=== PATIENT | female | born 2000 | race Caucasian/White ===

== ENCOUNTER 2020-11-17 21:40 | Emergency (ER) | payer OTHER ==
[~2020-11-17] VITALS: Ht 160 cm; Wt 101.6 kg
[2020-11-17 22:40] LABS: BILIRUBIN,URINE NEGATIVE (NEGATIVE); CLARITY,URINE CLEAR; COLOR,URINE YELLOW; GLUCOSE, URINE (UA) NEGATIVE (NEGATIVE); KETONES,URINE NEGATIVE (NEGATIVE); LEUKOCYTE ESTERASE ,URINE NEGATIVE (NEGATIVE); NITRITE,URINE NEGATIVE (NEGATIVE); PROTEIN,URINE NEGATIVE (NEGATIVE)
[2020-11-17 22:50] LABS: BACTERIA,URINE LARGE /HPF
[2020-11-17] MEDS ORDERED: ONDANSETRON 4 MG/2 ML (SDV) Z0FRAN IVP ONE (23:00)
[2020-11-17] MEDS ORDERED: KETOROLAC 30 MG/ML VIAL IVP ONE (23:00)
--- NOTE | 2020-11-17 23:19 | ED Abdominal Pain ---
General Chief Complaint: General Problems/Pain Stated Complaint: STOMACH PAIN/R BREAST PAIN Nursing Triage Note: PT AMB TO TRIAGE WITH COMPLAINT OF LOWER ABD PAIN AND RIGHT BREAST PAIN. STATES ABD PAIN STARTED THIS MORNING AND DESCRIBES AN INTERMITTENT STABBING PAIN. STATES RIGHT BREAST PAIN HAS BEEN ON GOING FOR TWO MONTHS BUT HAS BEEN AFRAID TO GET IT CHECKED OUT. STATES LMP WAS APPROX 2 WEEKS AGO, BUT THERE IS A CHANCE FOR . Source of Information: Patient, Other (Fianc) Exam Limitations: No Limitations History of Present Illness Date Seen by Provider: Nov 17, 2020 Time Seen by Provider: 22:36 Initial Comments Patient presents ER by private conveyance chief complaint that this morning she was awoken with some suprapubic pain as well as some vaginal bleeding. She thinks she might be but had a negative test today. She is trying to get . She been having some white frothy discharge lately. No dysuria. Her last menstrual period was 2 weeks ago and she has always been very regular within 1 day. She is not having cough shortness of air fever or chills. She had a normal bowel movement today. She had some nausea and vomiting today and yesterday. She also has some right breast tenderness has been going on for over 6 months. At the beginning she was having a little bloody nipple discharge. She has not followed up with anybody because she has been ignoring it she says. She does not have a primary care provider. Allergies and Home Medications Allergies Coded Allergies: Penicillins (Verified Allergy, Unknown, 11/17/20) Patient Home Medication List Home Medication List Reviewed: Yes Review of Systems Review of Systems Constitutional: No chills, No diaphoresis EENTM: No Blurred Vision, No Double Vision Respiratory: Denies Cough, Denies Shortness of Air Cardiovascular: Denies Chest Pain, Denies Edema Gastrointestinal: Denies Abdomen Distended, Denies Abdominal Pain Genitourinary: See HPI; Denies Burning; Discharge, Pain Musculoskeletal: No back pain, No joint pain All Other Systems Reviewed Negative Unless Noted: Yes Past Txpvguz-Xmbtjz-Zyqshy Hx Patient Social History Alcohol Use: Denies Use Smoking Status: Never a Smoker Recent Infectious Disease Expo: No Recent Hopitalizations: No Ebola Symptoms: Denies Symptoms Listed Immunizations Up To Date Tetanus Booster (TDap): Unknown PED Vaccines UTD: Yes Seasonal Allergies Seasonal Allergies: No Past Medical History Surgeries: No Respiratory: No Cardiac: No Neurological: No Genitourinary: No Gastrointestinal: No Musculoskeletal: No Endocrine: No HEENT: No Cancer: No Psychosocial: No Integumentary: No Blood Disorders: No Physical Exam Vital Signs Vital Signs - First Documented 11/17/20 21:48 Pulse 86 Resp 20 B/P (MAP) 129/85 O2 Delivery Room Air Capillary Refill : Height/Weight/BMI Height: '" Weight: lbs. oz. kg; 39.00 BMI Method: General Appearance: WD/WN, no apparent distress HEENT: PERRL/EOMI, TMs normal, pharynx normal Neck: full range of motion, supple, normal inspection Respiratory: lungs clear, normal breath sounds, no respiratory distress, no accessory muscle use Cardiovascular: normal peripheral pulses, regular rate, rhythm Gastrointestinal: normal bowel sounds, soft, no organomegaly; No distended; tenderness (Suprapubic without McBurney's point tenderness, Mendoza sign or Rovsing sign or other mesenteric signs) Back: normal inspection, no CVA tenderness, no vertebral tenderness Neurologic/Psychiatric: alert, oriented x 3 Progress/Results/Core Measures Results/Orders Lab Results Laboratory Tests Test 11/17/20 22:31 11/17/20 23:20 Range/Units Urine Color YELLOW Urine Clarity CLEAR Urine pH 6.0 5-9 Urine Specific [place]berry >=1.030 1.016-1.022 Urine Protein NEGATIVE NEGATIVE Urine Glucose (UA) NEGATIVE NEGATIVE Urine Ketones NEGATIVE NEGATIVE Urine Nitrite NEGATIVE NEGATIVE Urine Bilirubin NEGATIVE NEGATIVE Urine Urobilinogen 0.2 < = 1.0 MG/DL Urine Leukocyte Esterase NEGATIVE NEGATIVE Urine RBC (Auto) 2+ H NEGATIVE Urine RBC 5-10 H /HPF Urine WBC 10-25 H /HPF Urine Squamous Epithelial Cells 5-10 /HPF Urine Crystals NONE /LPF Urine Bacteria LARGE H /HPF Urine Casts NONE /LPF Urine Mucus MODERATE H /LPF Urine Culture Indicated YES White Blood Count 10.0 4.3-11.0 10^3/uL Red Blood Count 5.24 H 3.80-5.11 10^6/uL Hemoglobin 15.1 11.5-16.0 g/dL Hematocrit 45 35-52 % Mean Corpuscular Volume 85 80-99 fL Mean Corpuscular Hemoglobin 29 25-34 pg Mean Corpuscular Hemoglobin Concent 34 32-36 g/dL Red Cell Distribution Width 12.6 10.0-14.5 % Platelet Count 337 130-400 10^3/uL Mean Platelet Volume 9.5 9.0-12.2 fL Immature Granulocyte % (Auto) 0 % Neutrophils (%) (Auto) 58 42-75 % Lymphocytes (%) (Auto) 35 12-44 % Monocytes (%) (Auto) 5 0-12 % Eosinophils (%) (Auto) 1 0-10 % Basophils (%) (Auto) 1 0-10 % Neutrophils # (Auto) 5.7 1.8-7.8 10^3/uL Lymphocytes # (Auto) 3.5 1.0-4.0 10^3/uL Monocytes # (Auto) 0.5 0.0-1.0 10^3/uL Eosinophils # (Auto) 0.1 0.0-0.3 10^3/uL Basophils # (Auto) 0.1 0.0-0.1 10^3/uL Immature Granulocyte # (Auto) 0.0 0.0-0.1 10^3/uL Sodium Level 139 135-145 MMOL/L Potassium Level 4.0 3.6-5.0 MMOL/L Chloride Level 104 98-107 MMOL/L Carbon Dioxide Level 22 21-32 MMOL/L Anion Gap 13 5-14 MMOL/L Blood Urea Nitrogen 14 7-18 MG/DL Creatinine 1.08 0.60-1.30 MG/DL Estimat Glomerular Filtration Rate > 60 BUN/Creatinine Ratio 13 Glucose Level 96 70-105 MG/DL Calcium Level 9.8 8.5-10.1 MG/DL Corrected Calcium 9.5 8.5-10.1 MG/DL Total Bilirubin 0.5 0.1-1.0 MG/DL Aspartate Amino Transf (AST/SGOT) 21 5-34 U/L Alanine Aminotransferase (ALT/SGPT) 34 0-55 U/L Alkaline Phosphatase 87 40-136 U/L C-Reactive Protein High Sensitivity 0.45 0.00-0.50 MG/DL Total Protein 7.7 6.4-8.2 GM/DL Albumin 4.4 3.2-4.5 GM/DL My Orders Orders - LU GARCIA Ua Culture If Indicated (11/17/20 22:29) Urine Bedside (11/17/20 22:29) Cbc With Automated Diff (11/17/20 22:46) Comprehensive Metabolic Panel (11/17/20 22:46) Hs C Reactive Protein (11/17/20 22:46) Ketorolac Injection (Toradol Injection) (11/17/20 23:00) Ondansetron Injection (Zofran Injectio (11/17/20 23:00) Wet Prep (11/17/20 22:47) Neisseria Gonorrhea Swab (11/17/20 22:47) Chlamydia Trachomatis Swab (11/17/20 22:47) Syphilis Antibody Screen (11/17/20 22:47) Urine Culture (11/17/20 22:31) Medications Given in ED Current Medications Medications Dose Ordered Sig/Dina Route Start Time Stop Time Status Last Admin Dose Admin Ketorolac Tromethamine 30 mg ONCE ONCE IVP 11/17/20 23:00 11/17/20 23:01 DC 11/17/20 23:21 30 MG Ondansetron HCl 4 mg ONCE ONCE IVP 11/17/20 23:00 11/17/20 23:01 DC 11/17/20 23:20 4 MG Vital Signs/I&O 11/17/20 21:48 Pulse 86 Resp 20 B/P (MAP) 129/85 O2 Delivery Room Air Progress Progress Note #1: Time: 23:18 Progress Note Plan to do a pelvic exam get some swabs and look for PID. Other possibilities include mittelschmerz. Bedside is negative. Less likely appendicitis or gastroenteritis. We will get a urinalysis to rule out UTI. Most likely source of her bloody nipple discharge from 6 months ago with some breast tenderness is from a polyp. We did offer to do a breast exam versus have her follow-up with a cashier parking lot and she elected the latter. Toradol for discomfort. Progress Note #2: Time: 00:34 Progress Note The patient declined a breast and pelvic exam. We are highly suspicious of PID's were going to treat her with Rocephin, azithromycin and put her on doxycycline with a follow-up with Dr. King. After the Toradol her pain is gone. Departure Impression Primary Impression: PID (acute pelvic inflammatory disease) Additional Impression: Breast tenderness in female Disposition: 01 HOME, SELF-CARE Condition: Improved Departure-Patient Inst. Decision time for Depature: 00:36 Referrals: NO,LOCAL PHYSICIAN (PCP/Family) Primary Care Physician Patient Instructions: Mastalgia (DC), Pelvic Inflammatory Disease Add. Discharge Instructions: I suspect your abdominal pain is related to pelvic inflammatory disease which is an infection of the reproductive organs. We have given you some antibiotics tonight and tomorrow you can start taking doxycycline 1 capsule twice a day for a week. Follow-up in the next week to [address] King or the cashier parking lot of your choice. For your breast pain you need to also follow-up with your cashier parking lot or primary care doctor for further evaluation. Naproxen 500 mg twice a day as necessary for abdominal pain. Tylenol 1000 mg every 8 hours as necessary for pain. Heating pads can be helpful for pain. Drink plenty of fluids. Return to the ER for significant, intractable or worsening symptoms. All discharge instructions reviewed with patient and/or family. Voiced unde rstanding. Scripts Doxycycline Hyclate (Doxycycline Hyclate) 100 Mg Capsule 100 MG PO BID for 7 Days, #14 CAP 0 Refills Prov: LU GARCIA 11/18/20 Naproxen (Naprosyn) 500 Mg Tablet 500 MG PO BID, #30 TAB 0 Refills Prov: LU GARCIA 11/18/20 Copy Copies To 1: NATALIE KING DO LU GARCIA Nov 17, 2020 23:19
[2020-11-17 23:30] LABS: BASOPHILS # (AUTO) 0.1 10^3/uL (0.0-0.1); BASOPHILS % (AUTO) 1 % (0-10); EOSINOPHILS # (AUTO) 0.1 10^3/uL (0.0-0.3); EOSINOPHILS % (AUTO) 1 % (0-10); HEMATOCRIT 45 % (35-52); HEMOGLOBIN 15.1 g/dL (11.5-16.0); LYMPHOCYTES # (AUTO) 3.5 10^3/uL (1.0-4.0); LYMPHOCYTES % (AUTO) 35 % (12-44); MEAN CORPUSCULAR HEMOGLOBIN 29 pg (25-34); MEAN CORPUSCULAR HGB CONC 34 g/dL (32-36); MEAN CORPUSCULAR VOLUME 85 fL (80-99); MEAN PLATELET VOLUME 9.5 fL (9.0-12.2); MONOCYTES # (AUTO) 0.5 10^3/uL (0.0-1.0); MONOCYTES % (AUTO) 5 % (0-12); NEUTROPHILS # (AUTO) 5.7 10^3/uL (1.8-7.8); NEUTROPHILS % (AUTO) 58 % (42-75); PLATELET COUNT 337 10^3/uL (130-400)
[2020-11-17 23:40] LABS: ALBUMIN 4.4 GM/DL (3.2-4.5); CHLORIDE 104 MMOL/L (98-107); SODIUM 139 MMOL/L (135-145)
[2020-11-17 23:41] LABS: CALCIUM 9.8 MG/DL (8.5-10.1)
[2020-11-17 23:42] LABS: GLUCOSE 96 MG/DL (70-105); TOTAL PROTEIN 7.7 GM/DL (6.4-8.2)
[2020-11-17 23:43] LABS: CARBON DIOXIDE 22 MMOL/L (21-32)
[2020-11-17 23:44] LABS: BILIRUBIN,TOTAL 0.5 MG/DL (0.1-1.0)
[2020-11-17 23:46] LABS: ALKALINE PHOSPHATASE 87 U/L (40-136); CREATININE SERUM 1.08 MG/DL (0.60-1.30); GFR ESTIMATED > 60
[2020-11-17 23:47] LABS: BUN/CREATININE RATIO 13
[2020-11-17 23:49] LABS: ALANINE AMINOTRANSFERASE 34 U/L (0-55)
[2020-11-18] MEDS ORDERED: DOXY100C2 PO (00:38)
[2020-11-18] MEDS ORDERED: NAPR-1071 PO (00:38)
[2020-11-18] MEDS ORDERED: cefTRIAXone 500 MG/1.43 ML vial (IM ONLY) IM ONE (00:45)
[2020-11-18] MEDS ORDERED: LIDOCAINE 1% INJ 20 ML 20 ML VIAL INJ ONE (00:45)
[2020-11-18] MEDS ORDERED: cefTRIAXone FOR IV USE 1,000 MG in WATER (STERILE) FOR INJECTION 10 ML IV ONE (00:45)
[2020-11-18] MEDS ORDERED: AZITHROMYCIN 250 MG TAB (ZITHROMAX) PO ONE (00:45)
== END 2020-11-18 00:56 | disposition home or self-care (01) ==
LOC: ER 21:43
DX: N64.4 Mastodynia (principal); N73.9 Female pelvic inflammatory disease, unspecified; Z88.0 Allergy status to penicillin
CPT/HCPCS: 36415; 80053; 81000; 84703; 85025; 86141; 87088